=== PATIENT | female | born 1945 | race Caucasian/White ===

== ENCOUNTER 2020-02-24 15:20 | Observation (INO) ==
[2020-02-24 16:40] LABS: Basophils % 0.8 % (0.0-0.8); Eosinophils # 0.1 10*3/uL (0.0-0.87); Eosinophils % 1.7 % (0.00-10.9); Hematocrit 44.2 VOL% (35.7-47.0); Hemoglobin 14.9 GM/DL (12.0-16.0); Immature Granulocytes Absolute 0.05 #; Lymphocytes # 1.4 10*3/uL (1.4-4.0); Lymphocytes % 30.1 % (21.3-54.2); Mean Corpuscular HGB Conc 33.7 GM/DL (32-36); Mean Corpuscular Volume 94.8 FL (87-102); Mean Platelet Volume 9.5 FL (9.6-12.0); Monocytes % 16.9 % (1.7-12.7); Neutrophils % 49.5 % (38.7-73.9); Platelet Count 115 T/CUMM (130-400); Red Blood Count 4.66 MC/CUMM (3.8-5.5); Red Cell Distribution Width 14.1 % (9.3-17.3); White Blood Count 4.8 T/CUMM (4-12)
[2020-02-24 16:56] LABS: Bilirubin,Total 0.6 MG/DL (0.2-1.0); Calcium 9.2 MG/DL (8.5-10.1); Osmolality,Calculated 278.7 MOS/KG (273-304); Total Protein 7.9 G/DL (6.4-8.3)
[2020-02-24 16:57] LABS: Bacteria,Urine Many /HPF (Few); Bilirubin,Urine Negative (Negative); Blood, Urine Small mg/dL (Negative); Glucose,Urine (UA) >=500 mg/dL (Negative); Hyaline Casts,Urine 1 /LPF (0-3); Ketones,Urine 5 mg/dL (Negative); Mucus,Urine Occasional /LPF (Occasional); Nitrite,Urine Negative (Negative); Protein,Urine Negative; RBC,Urine 6 /HPF (0-4); Squamous Epithelial Cell,Urine Occasional /HPF (0-10); Urine Appearance Slightly Hazy (Clear); Urine Color Yellow (Yellow); Urine Urobilinogen < 2.0 EU/DL (0.2-1.0); WBC,Urine <1 /HPF (0-6)
[2020-02-24] MEDS ORDERED: GLUCAGON 1 MG VIAL IM PRN (18:07)
[2020-02-24] MEDS ORDERED: ACETAMINOPHEN 325 MG TABLET PO PRN (18:07)
[2020-02-24] MEDS ORDERED: DEXTROSE 50% 25 GM/50 ML VIAL IV PRN (18:07)
[2020-02-24] MEDS ORDERED: ONDANSETRON 4 MG/2 ML VIAL IV PRN (18:07)
[2020-02-24] MEDS: SODIUM CHLORIDE 0.9% 1,000 ML IV SCH (18:56)
[2020-02-24] MEDS ORDERED: PROMETHAZINE INJ 25 MG in SODIUM CHLORIDE 0.9% 50 ML IV PRN (23:04)
[2020-02-24] MEDS: PANTOPRAZOLE 40 MG VIAL IV SCH (23:23)
[2020-02-24] MEDS: INSULIN REGULAR 100 UNIT/ML SUBCUT SCH (23:24)
[2020-02-25 05:46] LABS: Basophils % 0.4 % (0.0-0.8); Hemoglobin 13.9 GM/DL (12.0-16.0); Immature Granulocytes % 1.3 %; Immature Granulocytes Absolute 0.06 #; Lymphocytes # 0.5 10*3/uL (1.4-4.0); Lymphocytes % 11.6 % (21.3-54.2); Mean Corpuscular HGB Conc 33.1 GM/DL (32-36); Mean Platelet Volume 9.7 FL (9.6-12.0); Monocytes % 4.6 % (1.7-12.7); Neutrophils % 82.1 % (38.7-73.9); Platelet Count 87 T/CUMM (130-400); Red Blood Count 4.33 MC/CUMM (3.8-5.5); White Blood Count 4.6 T/CUMM (4-12)
[2020-02-25 06:14] LABS: Band Neutrophils 5 % (0-10); Hypochromasia 1+; Lymphocytes 8 % (20-55); Segmented Neutrophils 82 % (50-85); Total Cells Counted 100
[2020-02-25 06:15] LABS: Platelet Estimate Decreased
[2020-02-25 06:20] LABS: Albumin 3.9 G/DL (3.4-5.0); Bilirubin,Total 2.1 MG/DL (0.2-1.0); Calcium 8.7 MG/DL (8.5-10.1); Osmolality,Calculated 280.7 MOS/KG (273-304); Total Protein 7.5 G/DL (6.4-8.3)
[2020-02-25] MEDS: POTASSIUM GLUCONATE 500 MG TABLET PO SCH (08:41)
[2020-02-25] MEDS: PANTOPRAZOLE 40 MG VIAL IV SCH ×2 (08:42→21:25)
[2020-02-25] MEDS: ASCORBIC ACID 500 MG TABLET PO SCH (08:42)
[2020-02-25] MEDS: lisinopriL 10 MG TABLET PO SCH (08:42)
[2020-02-25] MEDS: Empagliflozin [Jardiance] 10 MG PO SCH (08:45)
[2020-02-25] MEDS: INSULIN REGULAR 100 UNIT/ML SUBCUT SCH ×4 (08:45→21:25)
[2020-02-25] MEDS ORDERED: PANTOPRAZOLE 40 MG TABLET PO SCH (09:00)
[2020-02-25] MEDS: SODIUM CHLORIDE 0.9% 1,000 ML IV SCH (15:17)
[2020-02-26 06:49] LABS: Basophils % 0.2 % (0.0-0.8); Eosinophils % 0.7 % (0.00-10.9); Hematocrit 42.4 VOL% (35.7-47.0); Hemoglobin 14.2 GM/DL (12.0-16.0); Immature Granulocytes % 0.5 %; Immature Granulocytes Absolute 0.02 #; Lymphocytes % 22.4 % (21.3-54.2); Mean Corpuscular HGB Conc 33.5 GM/DL (32-36); Mean Corpuscular Volume 98.1 FL (87-102); Mean Platelet Volume 9.9 FL (9.6-12.0); Neutrophils % 64.2 % (38.7-73.9); Platelet Count 90 T/CUMM (130-400); Red Blood Count 4.32 MC/CUMM (3.8-5.5); Red Cell Distribution Width 13.9 % (9.3-17.3); White Blood Count 4.3 T/CUMM (4-12)
[2020-02-26 07:32] LABS: Platelet Estimate Decreased
[2020-02-26 07:33] LABS: Anisocytosis Slight
[2020-02-26 08:30] VITALS: BP 173/81
[2020-02-26] MEDS: PANTOPRAZOLE 40 MG VIAL IV SCH (09:18)
[2020-02-26] MEDS: lisinopriL 10 MG TABLET PO SCH (09:18)
[2020-02-26] MEDS: INSULIN REGULAR 100 UNIT/ML SUBCUT SCH (09:18)
[2020-02-26] MEDS: ASCORBIC ACID 500 MG TABLET PO SCH (09:18)
[2020-02-26] MEDS: Empagliflozin [Jardiance] 10 MG PO SCH (09:18)
[2020-02-26] MEDS: POTASSIUM GLUCONATE 500 MG TABLET PO SCH (09:18)
[2020-02-26 10:23] LABS: Albumin 3.3 G/DL (3.4-5.0); Bilirubin,Direct 0.37 MG/DL (0.0-0.20); Bilirubin,Indirect 0.7 MG/DL (0.0-1.0); Bilirubin,Total 1.1 MG/DL (0.2-1.0); Calcium 8.2 MG/DL (8.5-10.1); Osmolality,Calculated 275.8 MOS/KG (273-304); Total Protein 6.4 G/DL (6.4-8.3)
== END 2020-02-26 12:08 | disposition home or self-care (01) ==
LOC: N.ED 15:20 → N.EDINP 15:20 → SUATTDRO 17:42 → N.TELEN 20:38
PROVIDERS: ADMIT Internal Medicine; ATTEND Hospitalist